=== PATIENT | female | born 1960 | race Caucasian/White ===

== ENCOUNTER 2017-12-24 22:51 | Emergency (ER) | payer BC ==
[~2017-12-24] VITALS: Ht 170.2 cm; Wt 61.7 kg
[2017-12-24 23:30] VITALS: BP 142/91
[2017-12-24] MEDS ORDERED: Lidocaine 1% 10mg/ml/Epi 0.005mg/ml 30ml vial INJ ONE (23:45)
[2017-12-25] MEDS ORDERED: IBUPROFEN400 M1 PO (00:03)
[2017-12-25 00:10] VITALS: BP 142/91
--- NOTE | 2017-12-25 05:58 | Emergency Room Report ---
History of Present Illness General Chief Complaint: Laceration Source: Patient Present Illness HPI Patient is a 57-year-old female who presented after reportedly hitting her face on a door. The patient reports having pain to the upper lip. She denies any malocclusion. She denies loss of consciousness. She reports having injury to the upper lip which occurred just prior to arrival. Allergies: Coded Allergies: No Known Allergies (Unverified , 12/24/17) Patient History Past Medical History: see triage record Now: No Reviewed Nursing Documentation: PMH: Agreed; PSxH: Agreed Nursing Documentation-PMH Past Medical History: No Stated History Review of Systems All Other Systems: negative except mentioned in HPI Physical Exam Vital Signs Date Time Temp Pulse Resp B/P (MAP) Pulse Ox O2 Delivery O2 Flow Rate FiO2 12/24/17 23:09 97.7 100 16 142/91 97 97.7 12/24/17 23:30 Room Air General Appearance: well appearing, no apparent distress, alert, GCS 15 Head: normocephalic, atraumatic ENT: hearing grossly normal, normal voice, other - lip laceration 1cm linear, abrasion to ines border Neck: full range of motion, supple Respiratory: no respiratory distress, speaking full sentences Musculoskeletal: no calf tenderness Neurologic: normal gait Psychiatric: mood/affect normal Skin: no rash Procedures Laceration/Wound Repair Laceration/Wound Repair : Consent: Verbal Wound Location: face Wound's Depth, Shape: superficial Wound Length (cm): 1 Wound Explored: clean Irrigated w/ Saline (ccs): 5 Betadine Prep?: No Wound Debrided: minimal Wound Repaired With: sutures Suture Size/Type: 6:0 Number of Sutures: 3 Layer Closure?: No Patient Tolerated: Well Complications: None Medical Decision Making Diagnostic Impression: Primary Impression: Laceration ER Course Patient presented for laceration. Differential diagnoses included foreign body , nerve injury, arterial injury among others. Patient has a benign exam and does not appear to require any further imaging or laboratory testing at this time. The patient is advised wound care. The laceration was sutured with absorbable suture. The patient is advised to have removal if suture persists more than 5 days. Last Vital Signs Date Time Temp Pulse Resp B/P (MAP) Pulse Ox O2 Delivery O2 Flow Rate FiO2 12/25/17 00:10 97.7 100 16 142/91 97 Room Air 97.7 Status: improved Disposition: HOME, SELF-CARE Condition: Stable Scripts Ibuprofen (Ibuprofen) 400 Mg Tablet 400 MG PO Q8HR for pain, #20 TAB Prov: Farnky Borges MD 12/25/17 Referrals: NON PHYSICIAN (PCP) Patient Instructions: Facial Laceration Additional Instructions: Apply icepack to minimize swelling. Have wound checked in 2-3 days. Soft diet. Rinse mouth after eating. Franky Borges MD Dec 25, 2017 05:58
== END 2017-12-25 00:10 | disposition home or self-care (01) ==
LOC: EMR 23:24
DX: S01.511A Laceration without foreign body of lip, initial encounter (principal); W22.09XA Striking against other stationary object, initial encounter; Y92.9 Unspecified place or not applicable
CPT/HCPCS: 99283